=== PATIENT | female | born 1975 | race Caucasian/White ===

== ENCOUNTER 2017-05-31 10:53 | Emergency (ER) | payer OTHER ==
[~2017-05-31] VITALS: Wt 54.4 kg
[~2017-05-31 10:53] MED LIST: ALBUTEROL0.09 MG/A2 INH; AMOXICILLIN500 MG PO; ANAPROX DS550 MG PO; BACTRIM DS 8001 TA1 PO; BENTYL10 MG PO; BUPROPION HYDR100 MG PO; BUPROPION100 MG PO; CELEXA10 MG PO; CELEXA20 MG PO; CEPHALEXIN500 M1 PO; CLARITIN10 MG PO; ESCITALOPRAM OX20 MG PO; GLYCOLAX17 GM/DOSE PO; HYDROCODONE BIT1 T11 PO; KEFLEX500 MG PO; LEXAPRO20 MG PO; MEDROL DOSEPAK4 MG PO; MOTRIN600 MG PO; NEURONTIN300 MG PO; NORCO 325 MG-51 TAB PO; OLANZAPINE5 MG PO; OMEPRAZOLE D/R20 MG PO; PERCOCET 325 MG1 TA5 PO; PRILOSEC40 MG PO; RISPERIDONE2 M1 PO; SEPTRA DS 800 M1 TAB PO; TRAMADOL HCL50 MG PO; TRIMOX500 MG PO; TYLENOL325 M1 PO; ULTRAM50 MG PO; VICODIN 5/500 505 MG PO; WELLBUTRIN SR150 MG PO; WELLBUTRIN75 MG PO; ZITHROMAX Z PA250 MG PO; ZOFRAN ODT4 MG SL
[2017-05-31 10:55] VITALS: BP 106/72
[2017-05-31 11:19] LABS: BILIRUBIN NEGATIVE (NEGATIVE); BLOOD NEGATIVE (NEGATIVE); CLARITY CLEAR (CLEAR); COLOR YELLOW (YELLOW); GLUCOSE NEGATIVE (NEGATIVE); KETONE NEGATIVE (NEGATIVE); LEUKO ESTERASE NEGATIVE (NEGATIVE); NITRITE NEGATIVE (NEGATIVE); UROBILINOGEN 0.2 E.U./dl (0.2-1.0)
[2017-05-31 11:26] LABS: BACTERIA 3+; EPITHELIAL CELLS 16-20
[2017-05-31 11:35] LABS: BASO % 0.3 % (0.0-1.0); EOS # 0.2 10*3/uL (0.0-0.4); EOS % 2.6 % (1.0-4.0); HEMATOCRIT 39.6 % (37.0-47.0); HEMOGLOBIN 12.8 g/dl (12.0-16.0); LYMPH # 1.5 10*3/uL (1.3-4.4); LYMPH % 24.1 % (27.0-41.0); MEAN CELL VOLUME 91.2 fl (81.0-99.0); MEAN CORPUSCULAR HGB 29.5 pg (27.0-31.0); MEAN CORPUSCULAR HGB CONC 32.3 g/dl (33.0-37.0); MEAN PLATELET VOLUME 10.3 fl (9.6-12.3); MONO # 0.4 10*3/uL (0.1-1.0); NEUT % 65.7 % (47.0-73.0); PLATELET COUNT AUTOMATED 168 10*3/uL (130-400); RED BLOOD COUNT 4.34 10*6/uL (4.10-5.10); RED CELL DISTRI WIDTH 12.6 % (0-14.5); WHITE BLOOD COUNT 6.2 10*3/uL (4.8-10.8)
[2017-05-31 11:53] LABS: URINE AMPHETAMINES < 1000 (1000ng/ml); URINE BARBITURATES < 200 (200ng/ml); URINE BENZODIAZEPINES < 200 (200ng/ml); URINE CANNABINOIDS (THC) < 50 (50ng/ml); URINE COCAINE > 300 (300ng/ml); URINE METHADONE < 300 (300ng/ml); URINE OPIATES < 300 (300ng/ml)
[2017-05-31 11:54] LABS: URINE PHENCYCLIDINE < 25 (25ng/ml)
[2017-05-31 11:57] LABS: ALBUMIN 3.4 gm/dl (3.1-4.5); ALKALINE PHOSPHATASE 51 U/L (45-117); BUN 12 mg/dl (7-24); CHLORIDE 107 mmol/L (98-107); LIPASE 112 U/L (73-393); POTASSIUM 4.2 mmol/L (3.5-5.1); SGOT/AST 12 IU/L (3-35); SGPT/ALT 18 U/L (12-78); SODIUM 141 mmol/L (136-145); TOTAL PROTEIN 6.7 gm/dL (6.4-8.2)
== END 2017-05-31 13:17 | disposition home or self-care (01) ==
LOC: ED 10:53
PROVIDERS: Nurse Practitioner Family
DX: R10.32 Left lower quadrant pain (principal); R10.84 Generalized abdominal pain; F14.10 Cocaine abuse, uncomplicated; Z98.890 Other specified postprocedural states; Z79.899 Other long term (current) drug therapy; Z88.6 Allergy status to analgesic agent; Z90.49 Acquired absence of other specified parts of digestive tract

== ENCOUNTER → 2017-07-10 | Outpatient (CLI) | payer OTHER | END | disposition home or self-care (01) | LOC: MAMMO 06-28 08:00 | DX: Z12.31 Encounter for screening mammogram for malignant neoplasm of breast (principal) ==

== ENCOUNTER → 2017-09-03 | Outpatient (CLI) | payer OTHER ==
[2017-09-03 12:23] LABS: BASO % 0.6 % (0.0-1.0); EOS # 0.2 10*3/uL (0.0-0.4); EOS % 3.6 % (1.0-4.0); HEMATOCRIT 42.6 % (37.0-47.0); HEMOGLOBIN 13.7 g/dl (12.0-16.0); LYMPH # 1.2 10*3/uL (1.3-4.4); LYMPH % 23.1 % (27.0-41.0); MEAN CELL VOLUME 90.6 fl (81.0-99.0); MEAN CORPUSCULAR HGB 29.1 pg (27.0-31.0); MEAN CORPUSCULAR HGB CONC 32.2 g/dl (33.0-37.0); MEAN PLATELET VOLUME 10.7 fl (9.6-12.3); MONO # 0.4 10*3/uL (0.1-1.0); MONO % 7.8 % (3.0-9.0); NEUT # 3.2 10*3/uL (2.3-7.9); NEUT % 64.5 % (47.0-73.0); PLATELET COUNT AUTOMATED 189 10*3/uL (130-400); RED CELL DISTRI WIDTH 12.7 % (0-14.5)
== END | disposition home or self-care (01) ==
LOC: LAB 12:04
PROVIDERS: Allergy & Immunology
DX: J40 Bronchitis, not specified as acute or chronic (principal)

== ENCOUNTER → 2018-02-02 | Outpatient (CLI) | payer OTHER ==
[~2018-02-02] MED LIST changes: +24 HOUR ALLER15.8 ML NAS; +AVPAK AZITHROM250 MG PO; +INCRUSE ELLI62.5 MCG INH; +LAMICTAL150 MG PO; +MUCINEX1200 M1 PO; +PREDNISONE50 MG PO; +PROAIR HFA8.5 GM INH; +ZYPREXA5 M1 PO
== END | disposition home or self-care (01) ==
LOC: CANPRESDC → US 10:38 → SDC 02-18 09:30 → EDSTATUS 02-20 09:30 → SDC 02-20 10:00
DX: R10.84 Generalized abdominal pain (principal); K59.00 Constipation, unspecified

== ENCOUNTER 2018-05-09 13:26 | Emergency (ER) | payer OTHER ==
[~2018-05-09] VITALS: Ht 167.6 cm; Wt 57.2 kg
[~2018-05-09 13:26] MED LIST changes: -AVPAK AZITHROM250 MG PO; -MUCINEX1200 M1 PO; -PREDNISONE50 MG PO; -PROAIR HFA8.5 GM INH
[2018-05-09 13:27] VITALS: BP 108/80
[2018-05-09 13:51] LABS: BASO % 0.2 % (0.0-1.0); EOS # 0.1 10*3/uL (0.0-0.4); EOS % 0.5 % (1.0-4.0); HEMATOCRIT 38.5 % (37.0-47.0); LYMPH # 1.2 10*3/uL (1.3-4.4); LYMPH % 12.7 % (27.0-41.0); MEAN CELL VOLUME 90.6 fl (81.0-99.0); MEAN CORPUSCULAR HGB 30.6 pg (27.0-31.0); MEAN CORPUSCULAR HGB CONC 33.8 g/dl (33.0-37.0); MEAN PLATELET VOLUME 10.9 fl (9.6-12.3); MONO # 0.5 10*3/uL (0.1-1.0); MONO % 5.2 % (3.0-9.0); NEUT # 7.5 10*3/uL (2.3-7.9); PLATELET COUNT AUTOMATED 148 10*3/uL (130-400); RED BLOOD COUNT 4.25 10*6/uL (4.10-5.10); RED CELL DISTRI WIDTH 12.3 % (0-14.5); WHITE BLOOD COUNT 9.3 10*3/uL (4.8-10.8)
[2018-05-09 14:07] LABS: ALBUMIN 3.5 gm/dl (3.1-4.5); ALKALINE PHOSPHATASE 70 U/L (45-117); BUN 15 mg/dl (7-24); CHLORIDE 105 mmol/L (98-107); CREATININE 0.89 mg/dL (0.55-1.02); POTASSIUM 3.8 mmol/L (3.5-5.1); SGOT/AST 6 IU/L (3-35); SGPT/ALT 14 U/L (12-78); SODIUM 139 mmol/L (136-145); TOTAL PROTEIN 7.3 gm/dL (6.4-8.2)
[2018-05-09] MEDS ORDERED: PREDNISONE50 MG PO (15:01)
[2018-05-09] MEDS ORDERED: AVPAK AZITHROM250 MG PO (15:01)
[2018-05-09] MEDS ORDERED: PROAIR HFA8.5 GM INH (15:01)
[2018-05-09] MEDS ORDERED: MUCINEX1200 M1 PO (15:01)
== END 2018-05-09 14:58 | disposition home or self-care (01) ==
LOC: ED 13:26
PROVIDERS: Nurse Practitioner Family
DX: J20.9 Acute bronchitis, unspecified (principal); J06.9 Acute upper respiratory infection, unspecified; J44.9 Chronic obstructive pulmonary disease, unspecified; F17.200 Nicotine dependence, unspecified, uncomplicated; Z88.6 Allergy status to analgesic agent; Z90.49 Acquired absence of other specified parts of digestive tract

== ENCOUNTER → 2019-10-23 | Outpatient (CLI) | payer OTHER ==
[~2019-10-23] MED LIST changes: +AVPAK AZITHROM250 MG PO; +MUCINEX1200 M1 PO; +PREDNISONE50 MG PO; +PROAIR HFA8.5 GM INH
== END | disposition home or self-care (01) ==
LOC: ORTHO 00:24
PROVIDERS: ATTEND Psychiatry & Neurology Psychiatry
DX: M25.539 Pain in unspecified wrist (principal)

== ENCOUNTER → 2019-12-17 | Outpatient (CLI) | payer OTHER | END | disposition home or self-care (01) | LOC: MAMMO 11-17 14:30 | PROVIDERS: ATTEND Family Medicine | DX: Z12.31 Encounter for screening mammogram for malignant neoplasm of breast (principal); F17.210 Nicotine dependence, cigarettes, uncomplicated ==

== ENCOUNTER → 2020-03-05 | Outpatient (CLI) | payer OTHER ==
[~2020-03-05] MED LIST changes: +NAPROXEN250 MG PO; +PREDNISONE20 M1 PO; +PROVENTIL HFA6.7 GM INH
[2020-03-05 11:35] LABS: BASO % 0.2 % (0.0-1.0); EOS # 0.1 10*3/uL (0.0-0.4); EOS % 2.7 % (1.0-4.0); HEMATOCRIT 40.3 % (37.0-47.0); LYMPH # 1.5 10*3/uL (1.3-4.4); LYMPH % 28.8 % (27.0-41.0); MEAN CELL VOLUME 89.6 fl (81.0-99.0); MEAN CORPUSCULAR HGB 28.2 pg (27.0-31.0); MEAN CORPUSCULAR HGB CONC 31.5 g/dl (33.0-37.0); MEAN PLATELET VOLUME 11.5 fl (9.6-12.3); MONO # 0.4 10*3/uL (0.1-1.0); NEUT # 3.1 10*3/uL (2.3-7.9); NEUT % 59.9 % (47.0-73.0); PLATELET COUNT AUTOMATED 206 10*3/uL (130-400); RED CELL DISTRI WIDTH 12.1 % (0-14.5); WHITE BLOOD COUNT 5.2 10*3/uL (4.8-10.8)
[2020-03-05 12:09] LABS: ALBUMIN 3.7 gm/dl (3.1-4.5); ALKALINE PHOSPHATASE 62 U/L (45-117); BUN 18 mg/dl (7-24); CHLORIDE 114 mmol/L (98-107); CHOLESTEROL 194 mg/dL (<200); CREATININE 0.59 mg/dL (0.55-1.02); FREE T4 1.17 ng/dl (0.76-1.46); HDL CHOLESTEROL 58 mg/dl (40-60); LDL CHOLESTEROL 103 mg/dL (9-159); POTASSIUM 4.2 mmol/L (3.5-5.1); SGOT/AST 21 IU/L (3-35); SGPT/ALT 50 U/L (12-78); SODIUM 142 mmol/L (136-145); TOTAL PROTEIN 7.3 gm/dL (6.4-8.2); TRIGLYCERIDES 163 mg/dl (<150); VLDL CHOLESTEROL 33 mg/dL (6-40)
[2020-03-05 12:13] LABS: THYROID STIM HORMONE (HS) 0.022 uIU/ml (0.358-4.75)
[2020-03-05 13:01] LABS: VITAMIN D, 25-HYDROXY 16.4 ng/mL (30-100)
== END | disposition home or self-care (01) ==
LOC: LAB 11:03
PROVIDERS: ATTEND Internal Medicine
DX: Z00.00 Encounter for general adult medical examination without abnormal findings (principal); Z13.1 Encounter for screening for diabetes mellitus; Z13.21 Encounter for screening for nutritional disorder; E11.9 Type 2 diabetes mellitus without complications; I10 Essential (primary) hypertension; E03.9 Hypothyroidism, unspecified

== ENCOUNTER → 2020-03-18 | Outpatient (CLI) | payer OTHER | END | disposition home or self-care (01) | LOC: US 01:23 | PROVIDERS: ATTEND Internal Medicine | DX: E01.0 Iodine-deficiency related diffuse (endemic) goiter (principal) ==

== ENCOUNTER 2020-03-27 12:24 | Emergency (ER) | payer OTHER ==
[~2020-03-27] VITALS: Wt 81.6 kg
[~2020-03-27 12:24] MED LIST changes: -NAPROXEN250 MG PO; -PREDNISONE20 M1 PO; -PROVENTIL HFA6.7 GM INH
[2020-03-27 12:32] VITALS: BP 114/90
[2020-03-27] MEDS ORDERED: PROVENTIL HFA6.7 GM INH (13:27)
[2020-03-27] MEDS ORDERED: PREDNISONE20 M1 PO (13:27)
== END 2020-03-27 15:01 | disposition home or self-care (01) ==
LOC: ED 12:24
DX: J44.1 Chronic obstructive pulmonary disease with (acute) exacerbation (principal); F41.9 Anxiety disorder, unspecified; K21.9 Gastro-esophageal reflux disease without esophagitis; F31.9 Bipolar disorder, unspecified; F17.200 Nicotine dependence, unspecified, uncomplicated; Z88.5 Allergy status to narcotic agent; Z79.899 Other long term (current) drug therapy

== ENCOUNTER 2020-04-12 19:56 | Emergency (ER) | payer OTHER ==
[~2020-04-12] VITALS: Ht 154.9 cm; Wt 81.2 kg
[2020-04-12 19:56] VITALS: BP 117/81
[~2020-04-12 19:56] MED LIST changes: +PREDNISONE20 M1 PO; +PROVENTIL HFA6.7 GM INH
[2020-04-12] MEDS ORDERED: NAPROXEN250 MG PO (20:34)
== END 2020-04-12 20:55 | disposition home or self-care (01) ==
LOC: ED 19:56
DX: S93.402A Sprain of unspecified ligament of left ankle, initial encounter (principal); F41.9 Anxiety disorder, unspecified; K21.9 Gastro-esophageal reflux disease without esophagitis; J44.9 Chronic obstructive pulmonary disease, unspecified; F31.9 Bipolar disorder, unspecified; F17.200 Nicotine dependence, unspecified, uncomplicated; Z88.5 Allergy status to narcotic agent; Z79.899 Other long term (current) drug therapy; Z98.890 Other specified postprocedural states; W19.XXXA Unspecified fall, initial encounter; Y93.89 Activity, other specified; Y92.89 Other specified places as the place of occurrence of the external cause; Y99.8 Other external cause status

== ENCOUNTER → 2020-04-30 | Outpatient (CLI) | payer OTHER ==
[~2020-04-30] MED LIST changes: +NAPROXEN250 MG PO
== END | disposition home or self-care (01) ==
LOC: LAB 13:00
PROVIDERS: ATTEND Internal Medicine
DX: E03.9 Hypothyroidism, unspecified (principal)

== ENCOUNTER → 2020-06-03 | Outpatient (CLI) | payer OTHER | END | disposition home or self-care (01) | LOC: RAD 12:37 | PROVIDERS: ATTEND Chiropractor | DX: M54.5 Low back pain (principal) ==

== ENCOUNTER → 2021-04-13 | Outpatient (CLI) | payer OTHER ==
[2021-04-13 10:44] LABS: BASO % 0.4 % (0.0-1.0); EOS # 0.1 10*3/uL (0.0-0.4); EOS % 2.8 % (1.0-4.0); HEMATOCRIT 39.7 % (37.0-47.0); LYMPH # 1.6 10*3/uL (1.3-4.4); LYMPH % 32.5 % (27.0-41.0); MEAN CELL VOLUME 90.6 fl (81.0-99.0); MEAN CORPUSCULAR HGB 29.7 pg (27.0-31.0); MEAN CORPUSCULAR HGB CONC 32.7 g/dl (33.0-37.0); MONO # 0.4 10*3/uL (0.1-1.0); MONO % 7.1 % (3.0-9.0); NEUT # 2.8 10*3/uL (2.3-7.9); PLATELET COUNT AUTOMATED 210 10*3/uL (130-400); RED BLOOD COUNT 4.38 10*6/uL (4.10-5.10)
[2021-04-13 12:29] LABS: CHLORIDE 109 mmol/L (98-107); POTASSIUM 3.6 mmol/L (3.5-5.1); SODIUM 139 mmol/L (136-145)
[2021-04-13 12:50] LABS: ALKALINE PHOSPHATASE 48 U/L (45-117); BUN 16 mg/dl (7-24); CHOLESTEROL 226 mg/dL (<200); CREATININE 0.63 mg/dL (0.55-1.02); LDL CHOLESTEROL 130 mg/dL (9-159); SGOT/AST 19 IU/L (3-35); SGPT/ALT 52 U/L (12-78); TRIGLYCERIDES 123 mg/dl (<150)
== END | disposition home or self-care (01) ==
LOC: LAB 09:42
PROVIDERS: ATTEND Nurse Practitioner
DX: Z51.81 Encounter for therapeutic drug level monitoring (principal); F31.9 Bipolar disorder, unspecified; Z79.899 Other long term (current) drug therapy

== ENCOUNTER 2021-07-19 16:23 | Emergency (ER) | payer OTHER ==
[~2021-07-19] VITALS: Wt 68.0 kg
[2021-07-19 16:38] VITALS: BP 115/82
[2021-07-19] MEDS ORDERED: NAPROXEN250 MG PO (16:53)
[2021-07-19] MEDS ORDERED: TYLENOL325 M1 PO (16:53)
[2021-07-19] MEDS ORDERED: VALTREX1000 MG PO (16:53)
== END 2021-07-19 16:57 | disposition home or self-care (01) ==
LOC: ED 16:23
DX: B02.9 Zoster without complications (principal); Z88.6 Allergy status to analgesic agent; Z98.890 Other specified postprocedural states; Z90.89 Acquired absence of other organs; Z90.49 Acquired absence of other specified parts of digestive tract

== ENCOUNTER 2022-02-12 01:09 | Emergency (ER) | payer OTHER ==
[~2022-02-12] VITALS: Ht 167.6 cm; Wt 81.6 kg
[~2022-02-12 01:09] MED LIST changes: +VALTREX1000 MG PO
[2022-02-12 02:52] LABS: ALKALINE PHOSPHATASE 66 U/L (46-116); BUN 17 mg/dl (9-23); CHLORIDE 102 mmol/L (98-107); POTASSIUM 3.5 mmol/L (3.4-5.1); SGPT/ALT 121 U/L (10-49); THYROID STIM HORMONE (HS) 15.726 uIU/ml (0.550-4.780); TOTAL PROTEIN 7.6 gm/dL (6.0-8.0)
[2022-02-12 02:55] LABS: ETHYL ALCOHOL 317.8 mg/dl (<3)
[2022-02-12 03:25] LABS: BASO % 0.3 % (0.0-1.0); EOS % 0.2 % (1.0-4.0); HEMATOCRIT 41.4 % (37.0-47.0); LYMPH # 1.5 10*3/uL (1.3-4.4); LYMPH % 15.4 % (27.0-41.0); MEAN CELL VOLUME 90.4 fl (81.0-99.0); MEAN CORPUSCULAR HGB 29.3 pg (27.0-31.0); MEAN CORPUSCULAR HGB CONC 32.4 g/dl (33.0-37.0); MEAN PLATELET VOLUME 11.2 fl (9.6-12.3); MONO # 0.7 10*3/uL (0.1-1.0); MONO % 7.1 % (3.0-9.0); NEUT # 7.3 10*3/uL (2.3-7.9); NEUT % 76.7 % (47.0-73.0); PLATELET COUNT AUTOMATED 253 10*3/uL (130-400); RED BLOOD COUNT 4.58 10*6/uL (4.10-5.10); RED CELL DISTRI WIDTH 12.1 % (0-14.5); WHITE BLOOD COUNT 9.5 10*3/uL (4.8-10.8)
[2022-02-12 03:58] LABS: ACT PARTIAL THROMBO TIME 26.1 SECONDS (20.0-32.1); INTERNATIONAL NORM RATIO 0.9 (2.0-3.5)
[2022-02-12 04:01] LABS: BILIRUBIN Negative (Negative); BLOOD 1+ (Negative); CLARITY Cloudy (Clear); COLOR Yellow (Yellow); GLUCOSE Negative (Negative); KETONE Negative (Negative); LEUKO ESTERASE 1+ (Negative); NITRITE Negative (Negative); UROBILINOGEN 0.2 E.U./dl (0.0-1.0)
[2022-02-12 04:08] LABS: URINE AMPHETAMINES Negative (1000ng/ml); URINE BARBITURATES Negative (200ng/ml); URINE BENZODIAZEPINES Negative (200ng/ml); URINE CANNABINOIDS (THC) Negative (50ng/ml); URINE COCAINE Positive (300ng/ml); URINE METHADONE Negative (300ng/ml); URINE OPIATES Negative (300ng/ml); URINE PHENCYCLIDINE Negative (25ng/ml)
[2022-02-12 04:13] LABS: BACTERIA 2+
[2022-02-12 15:48] VITALS: BP 96/74
== END 2022-02-12 15:57 | disposition home or self-care (01) ==
LOC: ED 01:09
PROVIDERS: Family Medicine
DX: F10.920 Alcohol use, unspecified with intoxication, uncomplicated (principal); F14.10 Cocaine abuse, uncomplicated; Y90.9 Presence of alcohol in blood, level not specified

== ENCOUNTER → 2022-02-16 | Outpatient (CLI) | payer OTHER | END | disposition home or self-care (01) | LOC: LAB 11:44 | PROVIDERS: ATTEND Internal Medicine | DX: Z11.4 Encounter for screening for human immunodeficiency virus [HIV] (principal); A03.9 Shigellosis, unspecified; R76.0 Raised antibody titer ==

== ENCOUNTER → 2022-03-27 | Outpatient (CLI) | payer OTHER ==
[2022-03-27 12:21] LABS: BASO % 0.4 % (0.0-1.0); EOS # 0.1 10*3/uL (0.0-0.4); EOS % 2.7 % (1.0-4.0); HEMATOCRIT 37.3 % (37.0-47.0); LYMPH # 1.6 10*3/uL (1.3-4.4); MEAN CELL VOLUME 91.4 fl (81.0-99.0); MEAN CORPUSCULAR HGB 29.4 pg (27.0-31.0); MEAN CORPUSCULAR HGB CONC 32.2 g/dl (33.0-37.0); MEAN PLATELET VOLUME 10.5 fl (9.6-12.3); MONO # 0.4 10*3/uL (0.1-1.0); MONO % 7.4 % (3.0-9.0); NEUT # 2.8 10*3/uL (2.3-7.9); NEUT % 57.1 % (47.0-73.0); PLATELET COUNT AUTOMATED 194 10*3/uL (130-400); RED BLOOD COUNT 4.08 10*6/uL (4.10-5.10); WHITE BLOOD COUNT 4.9 10*3/uL (4.8-10.8)
[2022-03-27 12:44] LABS: ALKALINE PHOSPHATASE 48 U/L (46-116); BUN 23 mg/dl (9-23); CHLORIDE 102 mmol/L (98-107); CHOLESTEROL 210 mg/dL (<200); FREE T4 1.27 ng/dl (0.89-1.76); LDL CHOLESTEROL 114 mg/dL (9-159); POTASSIUM 4.2 mmol/L (3.4-5.1); SGPT/ALT 38 U/L (10-49); THYROID STIM HORMONE (HS) 0.222 uIU/ml (0.550-4.780); TRIGLYCERIDES 184 mg/dl (<150)
[2022-03-27 13:08] LABS: VITAMIN D, 25-HYDROXY 23.8 ng/mL (30-100)
== END | disposition home or self-care (01) ==
LOC: LAB 12:02
PROVIDERS: ATTEND Internal Medicine
DX: E03.9 Hypothyroidism, unspecified (principal); E55.9 Vitamin D deficiency, unspecified

== ENCOUNTER 2022-11-28 11:10 | Emergency (ER) | payer BC, OTHER ==
[~2022-11-28] VITALS: Ht 152.4 cm; Wt 63.5 kg
[2022-11-28 11:15] VITALS: BP 113/62
[2022-11-28] MEDS ORDERED: GEODON40 MG PO (11:16)
[2022-11-28] MEDS ORDERED: MIRTAZAPINE15 M2 PO (11:17)
[2022-11-28] MEDS ORDERED: LEVOTHYROXINE125 MCG PO (11:17)
[2022-11-28] MEDS ORDERED: HYDROXYZINE PAM25 M1 PO (11:17)
[2022-11-28] MEDS ORDERED: VIBRAMYCIN100 MG PO (11:44)
[2022-11-28] MEDS ORDERED: CEPHALEXIN500 M1 PO (11:44)
== END 2022-11-28 12:05 | disposition home or self-care (01) ==
LOC: ED 11:10
DX: J34.0 Abscess, furuncle and carbuncle of nose (principal); F41.9 Anxiety disorder, unspecified; K21.9 Gastro-esophageal reflux disease without esophagitis; J44.9 Chronic obstructive pulmonary disease, unspecified; F31.9 Bipolar disorder, unspecified; Z88.6 Allergy status to analgesic agent; Z90.49 Acquired absence of other specified parts of digestive tract; Z98.890 Other specified postprocedural states; F14.90 Cocaine use, unspecified, uncomplicated; Z87.891 Personal history of nicotine dependence

== ENCOUNTER → 2023-11-15 | Outpatient (CLI) | payer OTHER ==
[~2023-11-15] MED LIST changes: +GEODON40 MG PO; +HYDROXYZINE PAM25 M1 PO; +LEVOTHYROXINE125 MCG PO; +MIRTAZAPINE15 M2 PO; +VIBRAMYCIN100 MG PO
== END | disposition home or self-care (01) ==
LOC: LAB 10:14
PROVIDERS: ATTEND Internal Medicine
DX: A53.9 Syphilis, unspecified (principal); Z20.2 Contact with and (suspected) exposure to infections with a predominantly sexual mode of transmission

== ENCOUNTER → 2024-04-24 | Outpatient (CLI) | payer OTHER ==
[2024-04-24 14:16] LABS: FREE T4 1.26 ng/dl (0.89-1.76); T3 UPTAKE 28.4 % (22.4-36.7)
== END | disposition home or self-care (01) ==
LOC: LAB 13:15
PROVIDERS: ATTEND Internal Medicine
DX: E03.9 Hypothyroidism, unspecified (principal)